=== PATIENT | male | born 1995 | race African-American/Black ===

== ENCOUNTER 2019-01-19 05:02 | Emergency (ER) | payer BC ==
[2019-01-19] MEDS ORDERED: IPRATROPIUM/ALBUTEROL 0.5-2.5 MG/3 ML AMPUL NEB ONE (05:34)
[2019-01-19] MEDS ORDERED: PREDNISONE 20 MG TABLET PO ONE (05:34)
[2019-01-19] MEDS: ALBUTEROL SULFATE 0.083% NEB 2.5 MG/3 ML AMPUL NEB SCH ×2 (05:39→06:15)
--- NOTE | 2019-01-19 06:24 | ER Document Report ---
ED General - General Chief Complaint: Shortness Of Breath Stated Complaint: WHEEZING/TROUBLE BREATHIN Time Seen by Provider: 01/19/19 06:20 Primary Care Provider: [facility] [Provider Group] - Follow up as needed (as needed as low cost dental care. but requires application ) [facility] [Provider Group] - Follow up as needed (follow up as needed for low cost health care, though requires application after 1st vist after ER visit) [facility] [Provider Group] - Follow up in 3-5 days (please establish care with a primary care physician to follow up for your first asthma exacerbation as an adult with a history of childhood asthma) [facility] [Provider Group] - Follow up as needed (if needed for low cost healthcare option if do not qualify for [facility]) Mode of Arrival: Ambulatory - HPI Notes: 24BM w/ h/o remote mild childhood asthma that's been in remission but who presents ambulatory today for 2-3d of mild sore throat w/ some odynophagia but no dec in intake of solids/liquids and cough intermittently productive of thick sputum. But it was since yesterday noted SOB and a tightness in his chest w/ walking around/miniaml exertion and can hear/feel himself wheezing. these latter sx seem to have slightly progressed today. denies stridor/voice change, abd pain, skin changes. no f/c/s. no bowel changes. denies PND or orthopnea. can't pinpoint any exposures or onset assc w/ any factors. denies sick contacts. denies focal neuro deficits, nicole/neck pain. no urinary sx. no pain w/ breathing or cough. no h/o immobility or VTE, malignancy or fh or blood/clotting d/o. deneis inhaling crack cocaine or other drugs or (hyper)acuity to onset of any of his sx above. - Related Data Allergies/Adverse Reactions: No Known Allergies Allergy (Verified 02/03/19 12:45) Past Medical History - Social History Smoking Status: Current Some Day Smoker Family History: Reviewed & Not Pertinent Patient has suicidal ideation: No Patient has homicidal ideation: No Pulmonary Medical History: Reports: Hx Asthma Review of Systems - Review of Systems Constitutional: No symptoms reported. denies: Weight gain, Weight loss, Recent illness EENT: See HPI, Throat pain. denies: Eye pain, Eye discharge, Blurred vision, Tearing, Double vision, Ear pain, Ear discharge, Nose pain, Nose congestion, Nose discharge, Sinus pressure, Sinus discharge, Difficulty swallowing, Throat swelling, Mouth pain, Mouth swelling, Dental problem, Vertigo Cardiovascular: No symptoms reported, See HPI. denies: Chest pain, Palpitations, Heart racing, Orthopnea, Syncope, Dizziness, Lightheaded, Edema, Paroxysmal Nocturnal Dysp Respiratory: No symptoms reported, Cough, Short of breath, Sputum, Wheezing. denies: Hurts to breathe, Hemoptysis, Stridor Gastrointestinal: No symptoms reported Genitourinary: No symptoms reported Male Genitourinary: No symptoms reported Musculoskeletal: No symptoms reported Skin: No symptoms reported Hematologic/Lymphatic: No symptoms reported Neurological/Psychological: No symptoms reported Physical Exam - Vital signs Vitals: Temp Pulse Resp BP Pulse Ox 97.3 F 95 20 167/100 H 97 01/19/19 05:14 01/19/19 05:14 01/19/19 05:14 01/19/19 05:14 01/19/19 05:14 Interpretation: Normal, Hypertensive - initially BP high but resolved spontaneously, Tachycardic - General General appearance: Appears well, Alert In distress: None - nontoxic appearing ambulatory in ED w/o evid of inc wob. - HEENT Head: Normocephalic, Atraumatic Eyes: Normal. No: Pale conjunctiva, Periorbital ecchymosis, Periorbital edema, Scleral icterus Conjunctiva: No: Injected, Purulent discharge Extraocular movements intact: Yes Eyelashes: Normal Pupils: PERRL Ears: Normal External canal: Normal Tympanic membrane: Normal Sinus: Normal Nasal: Normal Mouth/Lips: Normal Mucous membranes: Dry Pharynx: Erythema - mild w/o edema assemetry of post phar structures or exudates. no stridor no trismus. No: Peritonsillar abscess, Tonsillar hypertrophy, Uvular edema, Potential airway comprom. Neck: Normal, Supple. No: Lymphadenopathy, Meningismus, Neck mass, Shotty nodes, Subcutaneous emphysema, Thyromegally - Respiratory Respiratory status: Tachypnea. No: Labored, Retractions, Tripod position - very slight inc in RR low 20s Chest status: Nontender. No: No pleuritic chest pain, Pain on movement, Pain with cough, Pain with deep breathing, Wounds, Accessory muscle use, Prolonged expirations, Splinting Breath sounds: Decreased air movement - has +end exp wheeze othertwise nonfocal exam very slightly dec air movement mostly exp phase which improves w/ neb Rx., Nonproductive cough, Wheezing. No: Rales, Rhonchi, Stridor Chest palpation: Normal - Cardiovascular Rhythm: Regular Heart sounds: Normal auscultation Murmur: No Gallop: None auscultated Normal capillary refill: Yes - Abdominal Inspection: Normal Distension: No distension Bowel sounds: Normal Tenderness: Nontender Organomegaly: No organomegaly - Back Back: Normal, Nontender - Extremities General upper extremity: Normal inspection, Nontender, Normal color, Normal ROM, Normal temperature General lower extremity: Normal inspection, Nontender, Normal color, Normal ROM, Normal temperature, Normal weight bearing. No: Odalys's sign - Neurological Neuro grossly intact: Yes Cognition: Normal Orientation: AAOx4 [place] Coma Scale Eye Opening: Spontaneous Amanda Coma Scale Verbal: Oriented [place] Coma Scale Motor: Obeys Commands [place] Coma Scale Total: 15 Speech: Normal Motor strength normal: LUE, RUE, LLE, RLE Sensory: Normal - Psychological Associated symptoms: Normal affect, Normal mood - Skin Skin Temperature: Warm Skin Moisture: Dry Skin Color: Normal Course - Re-evaluation Re-evalutation: during ED stay initially received prednisone 60mg, and ultimatly 3 duonebs w/ improvement in cough and mild end exp wheeze. reviewed ECG which is sinus tach ~110s, w/ normal axis, voltage. no st elv/dep or other derangements of intervals. reviewed 2v CXR today which shows evidence of chronic inflammatory obstructive pulm disease no h/o smoking. i d/w pt must est PCP in area and needs cont close eval of what appears to be recurrenc of his asthma which can be extremely dangerous if untreated. supplied him w/ aerochamber device today and he feels near baseline after 3 Rx here in ED. no hypoxia. no fevers. cont to appear nontoxic and obs after ambulation w/o inc WIB. neg rapid strep. - Vital Signs Vital signs: Temp Pulse Resp BP Pulse Ox 97.3 F 95 21 H 117/92 H 100 01/19/19 05:14 01/19/19 05:14 01/19/19 07:59 01/19/19 07:59 01/19/19 07:59 - Diagnostic Test Radiology results interpreted by me: 01/19/19 06:22 Chest x-ray 2 view AP and lateral are reviewed by me as well as radiologist interpretation reviewed by me. Adequate film good inspiratory effort slightly hyperinflated thin habitus good lung expansion no evidence of pneumothoraces no other evident consolidations mediastinum appears narrowed consistent with chronic inflammatory airway disease, otherwise trachea patent no other pulmonary edema - EKG Interpretation by Me Additional EKG results interpreted by me: 01/19/19 06:29 EKG from today reviewed by me sinus rhythm mildly tachycardic with rate 100, no ST elevations depressions all intervals within normal limits axis and voltage within normal limits Discharge - Discharge Clinical Impression: CHILDHOOD ASTHMA Asthma Qualifiers: Asthma severity: mild Asthma persistence: intermittent Asthma complication type: uncomplicated Qualified Code(s): J45.20 - Mild intermittent asthma, uncomplicated Condition: Fair Disposition: HOME, SELF-CARE Forms: Smoking Cessation Education Referrals: [facility] [Provider Group] - Follow up in 3-5 days (please establish care with a primary care physician to follow up for your first asthma exacerbation as an adult with a history of childhood asthma) [facility] [Provider Group] - Follow up as needed (as needed as low cost dental care. but requires application ) [facility] [Provider Group] - Follow up as needed (follow up as needed for low cost health care, though requires application after 1st vist after ER visit) [facility] [Provider Group] - Follow up as needed (if needed for low cost healthcare option if do not qualify for community [facility])
--- NOTE | 2019-01-19 07:28 | RADIOLOGY REPORT (SQ) ---
CLINICAL HISTORY: sob COMPARISON: None. TECHNIQUE: XR CHEST 2 VIEWS 01/19/2019 5:35 AM [facility] FINDINGS: Cardiac silhouette is normal in size. Lungs are clear without consolidation, atelectasis, mass or edema. There is no pleural effusion. There is no pneumothorax. There are no acute osseous findings. IMPRESSION: Clear lungs.
[2019-01-19 08:03] VITALS: BP 117/92
--- NOTE | 2019-01-19 08:08 | EKG REPORT ---
SEVERITY:- ABNORMAL ECG - SINUS TACHYCARDIA BIATRIAL ABNORMALITIES : Confirmed by: Dev Pollock MD 19-Jan-2019 08:07:28
== END 2019-01-19 08:05 | disposition home or self-care (01) ==
LOC: ER 05:02
DX: J45.20 Mild intermittent asthma, uncomplicated (principal); R13.10 Dysphagia, unspecified; F17.200 Nicotine dependence, unspecified, uncomplicated
CPT/HCPCS: 93005; 94640 ×2; 99285; 71046; 93010; J7512; J7620

== ENCOUNTER 2019-02-01 21:23 | Emergency (ER) | payer BC ==
[2019-02-01] MEDS ORDERED: DEXAMETHASONE SOD PHOS INJ 10 MG/1 ML VIAL IM ONE (21:34)
--- NOTE | 2019-02-01 21:35 | ER Document Report ---
ED Medical Screen (RME) - General Chief Complaint: Sore Throat Stated Complaint: SORE THROAT Time Seen by Provider: 02/01/19 21:33 Notes: 23-year-old male presents the emergency department with sore throat x2 days. Patient states that he is having dysphagia and has had a mild cough. Denies fevers or chills, denies neck stiffness, denies anterior neck pain, denies headache or earache, denies shortness of breath or chest pain, denies nausea /vomiting/diarrhea. Exam: Well-appearing and nontoxic. Patient is able to open his mouth without problem, no trismus, uvula midline, 2+ bilateral tonsillar hypertrophy with erythema and exudate bilateral I have greeted and performed a rapid initial assessment of this patient. A comprehensive ED assessment and evaluation of the patient, analysis of test results and completion of medical decision making process will be conducted by an additional ED providers. TRAVEL OUTSIDE OF THE [place] IN LAST 30 DAYS: No - Related Data Allergies/Adverse Reactions: No Known Allergies Allergy (Unverified 01/19/19 05:18) Past Medical History - Social History Chew tobacco use (# tins/day): No Pulmonary Medical History: Reports: Hx Asthma Physical Exam - Vital signs Vitals: Temp Pulse Resp BP Pulse Ox 98.4 F 67 16 118/72 98 02/01/19 21:28 02/01/19 21:28 02/01/19 21:28 02/01/19 21:28 02/01/19 21:28 Course - Vital Signs Vital signs: Temp Pulse Resp BP Pulse Ox 98.4 F 67 16 118/72 98 02/01/19 21:28 02/01/19 21:28 02/01/19 21:28 02/01/19 21:28 02/01/19 21:28
[2019-02-01] MEDS ORDERED: IBUPROFEN 600 MG TABLET PO ONE (21:37)
--- NOTE | 2019-02-01 22:41 | ER Document Report ---
HPI - HPI Patient complains to provider of: sore throat Time Seen by Provider: 02/01/19 21:33 Pain Level: 3 Context: Patient is an otherwise healthy 23-year-old male presents to the emergency department for sore throat for the last 3 days. Patient voices he has also had a generalized cough but is denying any congestion. Patient's denying any fevers, respiratory distress, chest pain, abdominal pain, vomiting, diarrhea, dysuria. Patient takes no medications, has no allergies, is up-to-date on immunizations. - CONSTITUTIONAL Constitutional: DENIES: Fever, Chills - EENT EENT: REPORTS: Sore Throat. DENIES: Ear Pain, Eye problems - NEURO Neurology: DENIES: Headache - REPRODUCTIVE Reproductive: DENIES: : Past Medical History - General Information source: Patient - Social History Smoking Status: Never Smoker Chew tobacco use (# tins/day): No Family History: Reviewed & Not Pertinent Patient has suicidal ideation: No Patient has homicidal ideation: No Pulmonary Medical History: Reports: Hx Asthma Vertical Provider Document - CONSTITUTIONAL Agree With Documented VS: Yes Notes: GENERAL: Alert, interacts well. No acute distress. HEAD: Normocephalic, atraumatic. EYES: Pupils equal, round, and reactive to light. Extraocular movements intact. ENT: Oral mucosa moist, tongue midline. Nares patent, TM's intact, nonerythematous, nonbulging bilaterally. Pharynx erythematous, tonsils +2 bilaterally and symmetrical. No palatal petechiae noted. NECK: Full range of motion. Supple. Trachea midline. No lymphadenopathy appreciated LUNGS: Clear to auscultation bilaterally, no wheezes, rales, or rhonchi. No respiratory distress. HEART: Regular rate and rhythm. No murmur ABDOMEN: Soft, non-tender. Non-distended. Bowel sounds present in all 4 quadrants. EXTREMITIES: Moves all 4 extremities spontaneously. No edema, normal radial and dorsalis pedis pulses bilaterally. No cyanosis. BACK: no cervical, thoracic, lumbar midline tenderness. No saddle anesthesia, normal distal neurovascular exam. NEUROLOGICAL: Alert and oriented x3. Normal speech. cranial nerves II through XII grossly intact. PSYCH: Normal affect, normal mood. SKIN: Warm, dry, normal turgor. No rashes or lesions noted. - INFECTION CONTROL TRAVEL OUTSIDE OF THE [place] IN LAST 30 DAYS: No Course - Re-evaluation Re-evalutation: Laboratory 02/01/19 21:40 Group A Strep Rapid NEGATIVE Patient's rapid strep test negative in the emergency department. Discussed sending it for culture. Discussed close follow-up with primary care provider with close return precautions. Patient stable for discharge. - Vital Signs Vital signs: Temp Pulse Resp BP Pulse Ox 98.4 F 67 16 118/72 98 02/01/19 21:28 02/01/19 21:28 02/01/19 21:28 02/01/19 21:28 02/01/19 21:28 Discharge - Discharge Clinical Impression: Sore throat (viral) Condition: Stable Disposition: HOME, SELF-CARE Instructions: Sore Throat ([facility]), Viral Syndrome ([facility]) Additional Instructions: As we discussed you have been seen and treated in the emergency department for your sore throat. Your initial rapid strep test is negative for bacteria. I have sent it for culture. Should it grow bacteria the hospital will contact you. Please take [id number] Tylenol Motrin for generalized discomfort. You can also use salt water gargles and [id number] lozenges. Please follow-up with your primary care provider in the next 12 to 24 hours. Return to the emergency department for any concerns. Forms: Return to Work
[2019-02-01 22:53] VITALS: BP 124/71
== END 2019-02-01 22:53 | disposition home or self-care (01) ==
LOC: ER 21:23
DX: J02.9 Acute pharyngitis, unspecified (principal); B97.89 Other viral agents as the cause of diseases classified elsewhere; R05 Cough; J45.909 Unspecified asthma, uncomplicated
CPT/HCPCS: 87070; 87880; J1100

== ENCOUNTER 2019-02-03 12:35 | Emergency (ER) | payer BC ==
[2019-02-03 12:39] VITALS: BP 134/76
--- NOTE | 2019-02-03 12:59 | ER Document Report ---
HPI - HPI Patient complains to provider of: ear pain, sore throat Time Seen by Provider: 02/03/19 12:47 Onset: Other Onset/Duration: Gradual, Persistent Quality of pain: Achy Pain Level: 4 Context: 23-year-old male presents the emergency department with complaints of left ear pain. Reports he was here this past weekend with a sore throat. He received steroids stated a culture but the strep test was negative. He reports his throat is feeling a little bit better. Denies fever vomiting diarrhea. Associated Symptoms: None Exacerbated by: Denies Relieved by: Denies Similar symptoms previously: Yes Recently seen / treated by doctor: Yes - EENT EENT: REPORTS: Ear Pain - left - REPRODUCTIVE Reproductive: DENIES: : Past Medical History - General Information source: Patient - Social History Smoking Status: Unknown if Ever Smoked Chew tobacco use (# tins/day): No Frequency of alcohol use: None Drug Abuse: None Occupation: [employer] Lives with: Family Family History: Reviewed & Not Pertinent Patient has suicidal ideation: No Patient has homicidal ideation: No Pulmonary Medical History: Reports: Hx Asthma Surgical Hx: Negative Vertical Provider Document - CONSTITUTIONAL Agree With Documented VS: Yes Exam Limitations: No Limitations General Appearance: WD/WN, No Apparent Distress - INFECTION CONTROL TRAVEL OUTSIDE OF THE [place] IN LAST 30 DAYS: No - HEENT HEENT: Atraumatic, Normocephalic, Pharyngeal Exudate, Pharyngeal Erythema - tonsillar hypertrophy, good airway, clear voice, no peritonsillar abscess opens mouth wide, Tympanic Membrane Red - Large amount of wax noted in ear canal. Are a cleaned with curette. Left TM with erythema. negative: Conjuctival Injection - NECK Neck: Normal Inspection, Supple. negative: Lymphadenopathy-Left, Lymphad enopathy-Right - RESPIRATORY Respiratory: Breath Sounds Normal, No Respiratory Distress - CARDIOVASCULAR Cardiovascular: Regular Rate - MUSCULOSKELETAL/EXTREMETIES Musculoskeletal/Extremeties: MONIQUE BRYANT - NEURO Level of Consciousness: Awake, Alert, Appropriate - DERM Integumentary: Warm, Dry Course - Re-evaluation Re-evalutation: 02/03/19 12:59 This 23-year-old male presents emergency department with complaints of left ear pain. Also has a sore throat but reports is feeling better after steroids this past weekend. Left ear with large amount of wax cleaned with curette. TM erythema noted patient to be treated with amoxicillin. He is not sure he is ever taken this before he was instructed on signs and symptoms of allergic re action. He was instructed to return here for any symptoms or concerns. He verbalized understanding to all instructions. Dictation of this chart was performed using voice recognition software; th erefore, there may be some unintended grammatical errors. - Vital Signs Vital signs: Temp Pulse Resp BP Pulse Ox 98.1 F 74 16 134/76 H 100 02/03/19 12:39 02/03/19 12:39 02/03/19 12:39 02/03/19 12:39 02/03/19 12:39 Discharge - Discharge Clinical Impression: Ear pain, left, Tonsillar exudate Otitis media Qualifiers: Otitis media type: unspecified Chronicity: acute Qualified Code(s): H66.90 - Otitis media, unspecified, unspecified ear Condition: Stable Disposition: HOME, SELF-CARE Instructions: Sore Throat ([facility]), Amoxicillin ([facility]) Additional Instructions: *You have been evaluated for ear pain, otitis media, tonsillar exudate *Take medication as prescribed, take ibuprofen or Tylenol as indicated for pain *Follow up with a primary care provider within one week for recheck *Return to ED for worsening condition, changes, needs, difficulty breathing concerns Monitor your blood pressure. Your blood pressure was elevated today. This may be because you were anxious, in pain or because you need medication. It is important to follow up with your primary care provider for full evaluation. Prescriptions: Amoxicillin Trihydrate [Amoxil 500 mg Capsule] 500 mg PO TID #30 capsule Forms: Elevated Blood Pressure
== END 2019-02-03 13:00 | disposition home or self-care (01) ==
LOC: ER 12:35
DX: J02.9 Acute pharyngitis, unspecified (principal); H66.90 Otitis media, unspecified, unspecified ear; H92.02 Otalgia, left ear
CPT/HCPCS: 99282